=== PATIENT | female | born 1955 | race Caucasian/White ===

== ENCOUNTER 2016-12-26 07:56 | Day surgery (SDC) | payer BC ==
--- NOTE | 2016-12-08 10:21 | HP ---
HISTORY AND PHYSICAL: DATE OF ADMISSION/SURGERY: She is scheduled for surgery at [facility] on . DATE OF HISTORY AND PHYSICAL: 11/27/16 ATTENDING SURGEON: Dr. Coello * (DICTATED BY JOSSUE BAILEY NP) CHIEF COMPLAINT: Varicose veins. HISTORY OF PRESENT ILLNESS: April Cavanaugh is a 61-year-old female, who presents for reevaluation of varicose veins of the right lower extremity. She has a history of venous insufficiency and presented with symptomatic varicose vein disease of the right lower extremity and superficial thrombophlebitis in 2008. She was found to be positive heterozygous prothrombin gene and is on lifetime Coumadin therapy. She recently developed a bleeding varix of the right leg. A venous Duplex scan was done, which showed the right leg greater saphenous vein is dilated and incompetent, measuring 8.5 mm at the knee level, with greater than 0.5% reflux, 11.2 mm in the mid thigh, and 11.3 mm at the saphenofemoral junction, with greater than 0.5 seconds reflux. The short saphenous vein is competent, 2.0 mm. There are no incompetent perforators and the deep system is normal. A Ramirez cyst is also noted, approximately [address] Charles has discussed the nature and course of endoluminal closure and venous reflux disease, and has discussed the material risks and relevant alternatives to surgery. These were reviewed with the patient at her preoperative appointment, including, but not limited to infection, bleeding, poor healing, recurrence, DVT. The patient has been given a chance to ask questions and these have been answered. The patient will sign on admission an informed consent for right leg endoluminal closure of the greater saphenous vein and microphlebectomies. The patient will be stopping her Coumadin 5 days prior to surgery. PAST MEDICAL HISTORY: Significant for heterozygous prothrombin gene and degenerative disk disease. Two weeks prior to her preoperative appointment, she had episodes of PVCs and vertigo. She is seeing her family practitioner, Reema Pickens DO., on 11/28/16. Six months prior to this episode, she had syncope and had a cardiac workup, which was all found to be negative. PAST SURGICAL HISTORY: Her previous surgeries are lumbar fusion in 2012, laminectomy in 2001, cholecystectomy in , gastric banding, and she has also had laser procedure to the right lower extremity in 1983. MEDICATIONS: Coumadin 10 mg on Thursday, , Thursday, and Thursday, 12 mg on Thursday, Thursday, and Thursday. ALLERGIES: None. FAMILY HISTORY: Father: MS, multiple myeloma, due to a stroke at age 60, was in a coma post stroke for 5 years. Mother: Myocardial infarction, hypertension, lung cancer, DVT, due to a pulmonary embolus. A brother with bladder cancer and a sister with hypertension. SOCIAL HISTORY: The patient a registered nurse. She denied tobacco use. She does have occasional alcohol use. PHYSICAL EXAMINATION GENERAL: April Cavanaugh is a 61-year-old female, well developed, well nourished , in no acute distress. VITAL SIGNS: Blood pressure 115/75, pulse 65, respirations 18. Height 69 inches, weight 210 pounds. HEENT: Within normal limits. Teeth are in good repair. Pharynx clear. EOMs intact. Pupils are equal, round, reactive to light and accommodation. NECK: Supple. Full range of motion. Thyroid nonpalpable. No cervical adenopathy. SPINE: Normal curvature. No spine or CVA tenderness. CHEST: Lungs clear. HEART: S1, S2. Regular rate and rhythm. No extra heart sounds, murmurs, clicks, or rubs. ABDOMEN: Soft, nontender. Positive bowel sounds. Positive tympany. No masses or organomegaly. NEUROLOGIC: Alert and oriented x3. The rest of exam was grossly intact. LOCAL EXAM: Shows truncal varicosities up to 2 cm in diameter, originating in the medial thigh, extending over the anterior thigh, varicosities along the medial leg to the foot and ankle area, with eczematous skin changes and 2+ ankle edema. IMPRESSION: Superficial venous reflux disease secondary to an incompetent right greater saphenous vein and the plan is same-day surgery admission to Dr. Coello's service for right leg endoluminal closure of the greater saphenous vein and microphlebectomies. JOSSUE BAILEY NP [id number]/[facility] #: [id number] [facility] CENTERMary
[~2016-12-26 07:56] MED LIST: Buffered Lidocaine 0.9% SYRIN* 5 ML/SYR SYRINGE INTRADERM ONE
[2016-12-26] MEDS ORDERED: Lidocaine 2% PF * 5 ML VIAL ONE (09:29)
[2016-12-26] MEDS ORDERED: EPINEPHrine AMP 1 MG/ML ONE (09:30)
[2016-12-26] MEDS ORDERED: Lidocaine 1% MPF* 2 ML VIAL ONE (09:30)
[2016-12-26] MEDS ORDERED: Lidocaine 2% PF* 10 ML AMP ONE (09:30)
[2016-12-26] MEDS ORDERED: Sodium Bicarbonate 8.4% IV* 50 ML VIAL ONE (09:33)
[2016-12-26] MEDS ORDERED: ceFAZolin 2 GM PREMIX (*) 50 ML IVPB ONE (09:44)
[2016-12-26] MEDS ORDERED: fentaNYL* 50 MCG/ML 2 ML VIAL (100 MCG VIAL) ONE ×2 (09:44→11:00)
[2016-12-26] MEDS ORDERED: Midazolam* 1 MG/ML 2 ML VIAL (2 MG) ONE (09:45)
[2016-12-26] MEDS ORDERED: Enoxaparin(*) 40 MG/0.4 ML SYR ONE (09:45)
[2016-12-26] MEDS ORDERED: Hydrocodone/APAP 5/300 (NF) TAB PO ONE (11:14)
[2016-12-26 11:43] VITALS: BP 120/65
--- NOTE | 2016-12-26 22:14 | OP ---
DATE OF OPERATION: 12/26/16 - [facility] DATE OF : 59 SURGEON: Steven Coello MD MEDICAL BILLING AND CODING INSTRUCTOR: Betzy Whitten NP ANESTHESIOLOGIST: Amadou Gipson MD ANESTHESIA: Local plus MAC. PRE-OP DIAGNOSIS: Superficial venous reflux disease with symptomatic varicose veins of the right lower extremity secondary to an incompetent right greater saphenous vein. POST-OP DIAGNOSIS: Superficial venous reflux disease with symptomatic varicose veins of the right lower extremity secondary to an incompetent right greater saphenous vein. OPERATIVE PROCEDURE: 1. Radiofrequency closure, right greater saphenous vein. 2. Microphlebectomies; greater than 10, less than 20 incisions. ESTIMATED BLOOD LOSS: None. DESCRIPTION OF PROCEDURE: The patient was taken to the procedure room. She underwent ultrasound mapping of the right greater saphenous vein as well as marking of the varicosities. She was then placed in a supine position. She was prepped and draped in the usual sterile fashion and under sedation, lidocaine 1% was used to infiltrate on the medial aspect below the knee area. Percutaneous cannulation of the greater saphenous vein was done under ultrasound guidance, once the small needle and wire were in place, the needle was exchanged for a 7-Gu[place]ian 11 cm long introducer sheath that was advanced over the wire inside the greater saphenous vein. After this was done, the introducer and the wire were removed. The sheath was left in place, which was then back bled and flushed with saline. After this was done, the Fast Track radiofrequency catheter was advanced inside the greater saphenous vein via the sheath, positioning the tip of the catheter 2 cm below the saphenofemoral junction, we then proceeded to infiltrate tumescent local anesthesia around the vein and the catheter from the entrance point up to the saphenofemoral junction. After this was completed, the patient was placed in Trendelenburg position. We confirmed the tip of the catheter to be 2 cm below the saphenofemoral junction and proceeded to activate the radiofrequency unit. The first 7 cm were cycled twice and then a single cycle thereafter delivering a total of 8 cycles to the greater saphenous vein, after this was completed, the vein appeared to be closed by thickening of the wall; however, the common femoral vein appeared to be compressible without any abnormalities. After this was done, the previously marked varicose veins were then removed by small incision in a stab avulsion technique. Greater than 10, less than 20 incisions were performed in the varicosities located in the anterolateral thigh, lateral leg, anterior leg. After this was completed, the small incisions were closed with 5-0 Prolene and Steri-Strips. A light pressure dressing was applied to the right lower extremity. The patient tolerated the procedure well. She was then taken in good condition to recovery room. [id number]/[facility] #: [id number] [place]
== END 2016-12-26 11:50 | disposition home or self-care (01) ==
LOC: OREAST 07:56
PROVIDERS: ATTEND Surgery
DX: I83.891 Varicose veins of right lower extremity with other complications (principal); D68.52 Prothrombin gene mutation; Z79.01 Long term (current) use of anticoagulants
CPT/HCPCS: 88300; J0171; J0690; J1650; J2001; J2250; J3010